=== PATIENT | male | born 1950 | race Caucasian/White ===

== ENCOUNTER → 2024-09-21 07:56 | Outpatient (REF) | payer MEDICARE, OTHER, SELFPAY | LOC: HWRCS 07:56 | PROVIDERS: ATTENDING PHYSICIAN Internal Medicine Cardiovascular Disease; FAMILY PHYSICIAN Family Medicine | DX: I77.810 Thoracic aortic ectasia (principal) | CPT/HCPCS: 93306 ==

== ENCOUNTER 2025-02-06 06:37 | Day surgery (SDC) | payer MEDICARE, OTHER, SELFPAY ==
[2025-02-06 07:18] LABS: Glucose - Point of Care 86 mg/dl (70-99)
== END 2025-02-06 09:10 | disposition home or self-care (01) ==
LOC: GI 06:37
PROVIDERS: ATTENDING PHYSICIAN Surgery
DX: Z12.11 Encounter for screening for malignant neoplasm of colon (principal); K57.30 Diverticulosis of large intestine without perforation or abscess without bleeding; K64.8 Other hemorrhoids; D12.0 Benign neoplasm of cecum; D12.8 Benign neoplasm of rectum
CPT/HCPCS: 45385; 82962; 88305